=== PATIENT | male | born 1970 | race Caucasian/White ===

== ENCOUNTER → 2019-05-23 11:03 | Outpatient (CLI) | payer OTHER ==
[2016-08-15 09:26] VITALS: BMI 28.8
[~2019-05-23 11:03] MED LIST: VENTOLIN HFA18 GM INH
[2019-05-23 14:36] LABS: BASOPHILS 0.2 % (0-2); HEMATOCRIT 37.5 % (42.0-54.0); HEMOGLOBIN 12.8 g/dL (13.5-17.5); IMMATURE GRANULOCYTES 0.4 % (0-5); LYMPHOCYTES 29.2 % (15-50); MCH 30.5 pg (26.0-34.0); MCHC 34.1 g/dL (31.0-37.0); MCV 89.5 fL (80.0-100.0); MEAN PLATELET VOLUME 9.1 fL (7.4-10.4); MONOCYTES 10.5 % (2-11); NEUTROPHILS 57.7 % (40-80); RBC 4.19 10x6/uL (4.20-6.10); RDW 14.4 % (11.5-14.5); WBC 9.1 10x3/uL (4.8-10.8)
[2019-05-23 14:38] LABS: PLATELET COUNT 521 10x3/uL (130-400)
[2019-05-23 14:44] LABS: CALC OSMOLALITY 275 mosm/kg (275-300); CALCIUM 8.9 mg/dL (8.5-10.1); CARBON DIOXIDE 27.8 mmol/L (21.0-32.0); CHLORIDE - SERUM 102 mmol/L (98-107); CREATININE - SERUM 0.8 mg/dL (0.6-1.3); GLUCOSE 101 mg/dL (74-106); SODIUM 138 mmol/L (136-145); UREA NITROGEN 12 mg/dL (7-18); VANCOMYCIN - TROUGH 8.4 ug/mL (10.0-20.0); eGFR NON AFRICAN AMERICAN > 90 mL/min (90-120)
[2019-05-23 15:41] LABS: ERYTHROCYTE SEDIMENTATION RATE 61 mm/hr (0-15)
== END | disposition home or self-care (01) ==
LOC: D.LABREF 11:03
PROVIDERS: ATTEND Internal Medicine Infectious Disease
DX: S59.901A Unspecified injury of right elbow, initial encounter (principal)

== ENCOUNTER → 2019-05-30 09:56 | Outpatient (CLI) | payer OTHER ==
[2016-08-15 09:26] VITALS: BMI 28.8
[2019-05-30 10:28] LABS: BASOPHILS 0.4 % (0-2); EOSINOPHILS 2.4 % (0-7); HEMOGLOBIN 14.1 g/dL (13.5-17.5); IMMATURE GRANULOCYTES 0.4 % (0-5); LYMPHOCYTES 30.1 % (15-50); MCH 31.1 pg (26.0-34.0); MCHC 35.3 g/dL (31.0-37.0); MCV 88.1 fL (80.0-100.0); MEAN PLATELET VOLUME 9.8 fL (7.4-10.4); MONOCYTES 12.1 % (2-11); NEUTROPHILS 54.6 % (40-80); RBC 4.54 10x6/uL (4.20-6.10); RDW 14.7 % (11.5-14.5); WBC 7.4 10x3/uL (4.8-10.8)
[2019-05-30 10:29] LABS: PLATELET COUNT 416 10x3/uL (130-400)
[2019-05-30 10:50] LABS: CALC OSMOLALITY 274 mosm/kg (275-300); CALCIUM 9.2 mg/dL (8.5-10.1); CARBON DIOXIDE 31.1 mmol/L (21.0-32.0); CHLORIDE - SERUM 101 mmol/L (98-107); CREATININE - SERUM 0.7 mg/dL (0.6-1.3); GLUCOSE 76 mg/dL (74-106); POTASSIUM - SERUM 4.2 mmol/L (3.5-5.1); SODIUM 138 mmol/L (136-145); UREA NITROGEN 12 mg/dL (7-18); VANCOMYCIN - TROUGH 7.3 ug/mL (10.0-20.0); eGFR NON AFRICAN AMERICAN > 90 mL/min (90-120)
[2019-05-30 11:31] LABS: ERYTHROCYTE SEDIMENTATION RATE 44 mm/hr (0-15)
== END | disposition home or self-care (01) ==
LOC: D.LABREF 09:56
PROVIDERS: ATTEND Internal Medicine Infectious Disease
DX: S59.901A Unspecified injury of right elbow, initial encounter (principal); M86.18 Other acute osteomyelitis, other site

== ENCOUNTER → 2019-06-06 10:26 | Outpatient (CLI) | payer OTHER ==
[2016-08-15 09:26] VITALS: BMI 28.8
[2019-06-06 11:31] LABS: BASOPHILS 0.3 % (0-2); EOSINOPHILS 2.4 % (0-7); HEMOGLOBIN 14.2 g/dL (13.5-17.5); IMMATURE GRANULOCYTES 0.3 % (0-5); LYMPHOCYTES 31.1 % (15-50); MCHC 34.6 g/dL (31.0-37.0); MCV 86.5 fL (80.0-100.0); MEAN PLATELET VOLUME 10.1 fL (7.4-10.4); MONOCYTES 11.8 % (2-11); NEUTROPHILS 54.1 % (40-80); RBC 4.74 10x6/uL (4.20-6.10); RDW 14.5 % (11.5-14.5); WBC 7.6 10x3/uL (4.8-10.8)
[2019-06-06 11:39] LABS: PLATELET COUNT 332 10x3/uL (130-400)
[2019-06-06 11:55] LABS: CALC OSMOLALITY 270 mosm/kg (275-300); CALCIUM 9.2 mg/dL (8.5-10.1); CARBON DIOXIDE 22.3 mmol/L (21.0-32.0); CHLORIDE - SERUM 101 mmol/L (98-107); CREATININE - SERUM 0.6 mg/dL (0.6-1.3); POTASSIUM - SERUM 4.6 mmol/L (3.5-5.1); SODIUM 136 mmol/L (136-145); UREA NITROGEN 14 mg/dL (7-18); VANCOMYCIN - TROUGH 9.4 ug/mL (10.0-20.0); eGFR NON AFRICAN AMERICAN > 90 mL/min (90-120)
[2019-06-06 12:03] LABS: GLUCOSE 68 mg/dL (74-106)
[2019-06-06 12:52] LABS: ERYTHROCYTE SEDIMENTATION RATE 31 mm/hr (0-15)
== END | disposition home or self-care (01) ==
LOC: D.LABREF 10:26
PROVIDERS: ATTEND Internal Medicine Infectious Disease
DX: T84.610A Infection and inflammatory reaction due to internal fixation device of right humerus, initial encounter (principal)

== ENCOUNTER → 2019-08-08 09:53 | Outpatient (CLI) | payer OTHER ==
[2016-08-15 09:26] VITALS: BMI 28.8
[2019-08-08 10:29] LABS: BASOPHILS 0.1 % (0-2); HEMATOCRIT 31.2 % (42.0-54.0); HEMOGLOBIN 10.9 g/dL (13.5-17.5); IMMATURE GRANULOCYTES 0.4 % (0-5); MCH 29.2 pg (26.0-34.0); MCHC 34.9 g/dL (31.0-37.0); MCV 83.6 fL (80.0-100.0); MEAN PLATELET VOLUME 9.3 fL (7.4-10.4); MONOCYTES 10.7 % (2-11); NEUTROPHILS 62.8 % (40-80); RBC 3.73 10x6/uL (4.20-6.10); RDW 15.1 % (11.5-14.5); WBC 8.5 10x3/uL (4.8-10.8)
[2019-08-08 10:32] LABS: PLATELET COUNT 530 10x3/uL (130-400)
[2019-08-08 10:40] LABS: ALBUMIN 2.6 g/dL (3.4-5.0); ALKALINE PHOSPHATASE 162 U/L (46-116); ALT (SGPT) 45 U/L (10-68); BILIRUBIN - TOTAL 0.18 mg/dL (0.2-1.3); CALC OSMOLALITY 274 mosm/kg (275-300); CALCIUM 9.3 mg/dL (8.5-10.1); CARBON DIOXIDE 28.3 mmol/L (21.0-32.0); CHLORIDE - SERUM 100 mmol/L (98-107); CREATININE - SERUM 0.7 mg/dL (0.6-1.3); GLUCOSE 81 mg/dL (74-106); POTASSIUM - SERUM 4.4 mmol/L (3.5-5.1); PROTEIN - SERUM 7.4 g/dL (6.4-8.2); SODIUM 138 mmol/L (136-145); UREA NITROGEN 12 mg/dL (7-18); VANCOMYCIN - TROUGH 13.5 ug/mL (10.0-20.0); eGFR NON AFRICAN AMERICAN > 90 mL/min (90-120)
[2019-08-08 11:54] LABS: ERYTHROCYTE SEDIMENTATION RATE 135 mm/hr (0-15)
== END | disposition home or self-care (01) ==
LOC: D.LABREF 09:53
PROVIDERS: ATTEND Orthopaedic Surgery Sports Medicine
DX: T81.40XA Infection following a procedure, unspecified, initial encounter (principal)